=== PATIENT | male | born 1955 | race Caucasian/White ===

== ENCOUNTER 2021-06-01 13:10 | Emergency (ER) | payer OTHER, SELFPAY ==
[2021-06-01 13:23] VITALS: BP 135/78; PULSE 70; RESP 18; TEMP 36.9; O2SAT 100
== END 2021-06-01 16:06 | disposition left against medical advice (07) ==
PROVIDERS: Emergency Provider Emergency Medicine; PCP Internal Medicine
DX: L02.212 Cutaneous abscess of back [any part, except buttock and flank] (principal)
CPT/HCPCS: 99281

== ENCOUNTER → 2023-01-02 13:58 | Outpatient (CLI) | payer MEDICARE, SELFPAY | PROVIDERS: Visit Provider Physician Assistant | DX: J02.9 Acute pharyngitis, unspecified (principal) | CPT/HCPCS: 87070 ==